=== PATIENT | male | born 1935 | race Caucasian/White ===

== ENCOUNTER 2018-11-22 09:56 | Emergency (ER) | payer OTHER ==
[~2018-11-22] VITALS: Ht 182.9 cm; Wt 95.2 kg
[~2018-11-22 09:56] MED LIST: ALBU90OI INH; ASPI325 PO; ATEN50 PO; ATOR20 PO; CEPH500 PO; CITRATE OF MAG296 ML; CLOP75 PO; DOCU100 PO; HYDACE5 PO; LISI10 PO; LISI20 PO; METCAR500 PO; POLYETHYLENE G500 GM MC; TAMS.4ER PO; ZOLP10 PO
[2018-11-22] MEDS ORDERED: ALLO100 (10:23)
[2018-11-22] MEDS ORDERED: CYAN500 PO (10:24)
[2018-11-22] MEDS ORDERED: FINA5 (10:24)
[2018-11-22] MEDS ORDERED: AMLO5 PO (10:24)
[2018-11-22] MEDS ORDERED: NITR100CA PO (10:25)
[2018-11-22] MEDS ORDERED: MELA3 (10:25)
[2018-11-22 10:35] LABS: BASOPHILS ABSOLUTE AUTO 0.01 K/mm3 (0.00-0.23); BASOPHILS PERCENT AUTO 0 % (0-2); EOSINOPHILS ABSOLUTE AUTO 0.25 K/mm3 (0.00-0.68); EOSINOPHILS PERCENT AUTO 5 % (0-6); Hematocrit 42.7 % (37.0-53.0); IMMATURE GRAN ABSOLUTE AUTO 0.01 K/mm3 (0.00-0.10); IMMATURE GRAN PERCENT AUTO 0 % (0-1); LYMPHOCYTES PERCENT AUTO 18 % (21-46); MONOCYTES ABSOLUTE AUTO 0.37 K/mm3 (0.16-1.47); MONOCYTES PERCENT AUTO 7 % (4-13); Mean Corpuscular HGB 34.3 pg (26.0-34.0); Mean Corpuscular HGB Conc 32.8 g/dL (31.5-36.5); Mean Corpuscular Volume 105 fL (80-100); Mean Platelet Volume 10.4 fL (9.1-12.4); NEUTROPHILS ABSOLUTE AUTO 3.45 K/mm3 (1.96-9.15); NEUTROPHILS PERCENT AUTO 69 % (41-73); Platelet Count 111 K/mm3 (150-400); RDW Coefficient Variation 13.7 % (11.7-14.2); RDW Standard Deviation 52.3 fL (35.1-46.3); Red Blood Cell Count 4.08 M/mm3 (4.30-5.90); White Blood Cell Count 4.99 K/mm3 (4.00-11.30)
[2018-11-22 10:42] LABS: Source, Urine Clean Catch
[2018-11-22 10:44] LABS: Albumin, Blood 3.3 g/dL (3.4-5.0); Albumin/Globulin Ratio 0.8 (0.8-1.8); Bilirubin, Total 0.6 mg/dL (0.1-1.0); Bun/Creatinine Ratio 14.4 (12.0-20.0); Calcium, Blood 8.6 mg/dL (8.5-10.1); Creatinine, Blood 1.32 mg/dL (0.60-1.20); Globulin, Blood 3.9 g/dL (2.2-4.0); Potassium, Blood 4.5 mmol/L (3.5-5.5); Total Protein, Blood 7.2 g/dL (6.4-8.2)
[2018-11-22 10:49] LABS: Appearance, Urine Turbid (Clear); Bilirubin, Urine Neg (Neg); Blood, Urine 5+ (Neg); Color, Urine Brown (P-Yellow); Glucose Qualitative, Urine Neg (Neg); Ketones, Urine 1+ (Neg); Leukocyte Esterase, Urine 3+ (Neg); Nitrite, Urine Pos (Neg); Protein, Urine 4+ (Neg); Specific Gravity, Urine 1.015 (1.003-1.022); Urobilinogen, Urine NORM (Normal)
[2018-11-22 11:01] LABS: International Normalized Ratio 0.97; Prothrombin Time Results 10.3 Sec (9.7-11.5)
[2018-11-22 11:10] LABS: Red Blood Cells, Urine TNTC /hpf (0-2)
[2018-11-22] MEDS ORDERED: CEPH500 PO (11:23)
[2018-11-22 11:26] LABS: Bacteria Mod /hpf; Squamous Epithelial Cells Rare /hpf (Few)
[2018-11-22 11:27] LABS: Transitional Epithelial Cells Rare /hpf (0-Rare)
[2018-11-22 11:28] LABS: Amorphous Light (0-Heavy)
== END 2018-11-22 13:33 | disposition home or self-care (01) ==
LOC: ER 09:56
PROVIDERS: Emergency Medicine
DX: N39.0 Urinary tract infection, site not specified (principal); C34.90 Malignant neoplasm of unspecified part of unspecified bronchus or lung; Z79.82 Long term (current) use of aspirin; Z79.899 Other long term (current) drug therapy; I10 Essential (primary) hypertension; E78.00 Pure hypercholesterolemia, unspecified
CPT/HCPCS: 51798; 80053; 81001; 85025; 85610; 87077; 87086; 87186; 99283